=== PATIENT | male | born 1950 | race Caucasian/White ===

== ENCOUNTER → 2017-02-10 | Outpatient (CLI) | payer OTHER ==
--- NOTE | 2017-02-10 09:32 | US ---
EXAMINATION TYPE: US kidneys/renal and bladder DATE OF EXAM: 02/10/2017 COMPARISON: NONE CLINICAL HISTORY: 67-year-old male N40.1 BPH with obstruction. TECHNIQUE: Multiple sonographic images of the kidneys and bladder were obtained. FINDINGS: [employer] NOTES: Technical limitations due to large amount of overlying bowel content Right Kidney: 11.8 x 5.8 x 4.1 cm with mild pelvicaliectasis. Left Kidney: 11.7 x 5.3 x 4.5 cm with an extrarenal pelvis but no hydronephrosis. No gross abnormality of the urine distended bladder. Neither ureteral jet is seen during the course o f the exam. IMPRESSION: 1. Mild right-sided pelvicaliectasis may be transient. 2. An extrarenal pelvis incidentally noted on the left without hydronephrosis.
== END | disposition home or self-care (01) ==
LOC: RADUSWWP 08:28
PROVIDERS: ATTEND Urology
DX: N13.30 Unspecified hydronephrosis (principal); N40.1 Benign prostatic hyperplasia with lower urinary tract symptoms
CPT/HCPCS: 76770

== ENCOUNTER → 2020-10-06 | Outpatient (CLI) | payer MEDICARE ==
--- NOTE | 2020-10-06 12:59 | MR ---
EXAMINATION TYPE: MR knee RT wo con DATE OF EXAM: 10/06/2020 COMPARISON: None HISTORY: Right knee pain and swelling TECHNIQUE: Multiplanar, multisequence imaging of the right knee is performed without IV contrast. FINDINGS: MEDIAL MENISCUS: Posterior horn the medial meniscus shows abnormal linear signal extending to the und ersurface consistent with tear. There may be meniscal cyst extending from the inferior aspect of the anterior horn, abnormal signal extends into the posterior root which may be specialty sales representative degenerati ve change him a mucoid degeneration LATERAL MENISCUS: Anterior and posterior horns are intact without tear. CRUCIATE LIGAMENTS: The anterior and posterior cruciate ligaments are intact and unremarkable. COLLATERAL LIGAMENTS: The medial collateral ligament and lateral collateral ligament complex are inta ct and unremarkable. EXTENSOR MECHANISM: Visualized quadriceps and patellar tendons are intact. EFFUSION: Suprapatellar joint effusion is present. POPLITEAL CYST: No popliteal/maldonado cyst. TRICOMPARTMENT SPACES: Maintained CARTILAGE: Grade 2 to grade III chondromalacia changes suspected along the medial compartment BONE MARROW SIGNAL: There is possible reactive marrow signal change involving the proximal tibia near the insertion of the posterior cruciate ligament, there may be some local ganglion cyst formation, s agittal image 15 shows a cluster of grapes type appearance OTHER: Subcutaneous edema changes are present. There is some edema along the fascial planes posterio r to the knee IMPRESSION: Tear the posterior horn the medial meniscus. Osteoarthritis. Soft tissue edema and additional finding s above.
== END | disposition home or self-care (01) ==
LOC: RADMRIMAIN 10:28
PROVIDERS: ATTEND Orthopaedic Surgery Sports Medicine
DX: M23.321 Other meniscus derangements, posterior horn of medial meniscus, right knee (principal); M17.11 Unilateral primary osteoarthritis, right knee

== ENCOUNTER → 2021-10-12 | Outpatient (CLI) | payer MEDICARE ==
--- NOTE | 2021-10-14 14:17 | CT ---
EXAMINATION TYPE: CT abdomen pelvis w con DATE OF EXAM: 10/12/2021 COMPARISON: NONE HISTORY: 71-year-old male Left lower quadrant pain TECHNIQUE: Contiguous axial scanning of the abdomen and pelvis following administration of 100 ml Iso nancy 300 IV contrast. Delayed images through the kidneys and coronal/sagittal reconstructions perform ed. CT DLP: 1775.7 mGycm Automated exposure control for dose reduction was used. FINDINGS: Heart normal size without pericardial effusion. Lung bases clear without pleural effusion. Mild emphysematous changes noted in the visualized lower lungs. There is a small hiatal hernia. Portal venous system is patent. No biliary ductal dilatation. Gallbladder, adrenal glands, spleen are within normal limits. Bilateral parapelvic cysts measuring up to 3.3 cm on either side. Additional tiny 9 mm cortical cyst lateral right kidney. There appears to be a partially annular pancreas mildly narrowing the lumen of the second portion of the duodenum. No obstructive changes. Mild atherosclerotic calcifications infrarenal abdominal aorta and iliac arteries without aneurysm. No dilated small bowel, free fluid, or free air. No mesenteric or retroperitoneal lymphadenopathy. Normal appendix. Oral contrast progressed to the upper ascending colon. There is generalized colonic diverticulosis with mild stool burden. Mild pericolonic fat stranding along the proximal sigmoid colo n. Bladder is nondistended. Prostate gland measures 5.8 cm wide. Mildly patulous left inguinal canal. No abnormal fluid collection in the pelvis or pelvic lymphadenopathy. A few pelvic lymph nodes are note d. Bones: Moderate to advanced degenerative disc disease L3-L4 and L4-L5. Hypertrophic facet arthropathy throughout with degenerative grade 1 retrolisthesis L2-L3. IMPRESSION: 1. GENERALIZED COLONIC DIVERTICULOSIS. THERE IS MILD PERICOLONIC FAT STRANDING ALONG THE PROXIMAL SIG MOID COLON SUGGESTING CHANGES OF MILD ACUTE DIVERTICULITIS. NO ABSCESS OR FREE AIR. 2. NUMEROUS BILATERAL PARAPELVIC CYSTS MEASURING UP TO 3.3 CM. 3. THERE MAY BE A PARTIALLY ANNULAR PANCREAS INCIDENTALLY SEEN. 4. SMALL HIATAL HERNIA. BACKGROUND COPD IN THE VISUALIZED LOWER LUNGS. 5. PROSTATOMEGALY OF 5.8 CM WIDE.
== END | disposition home or self-care (01) ==
LOC: RADCTMAIN 10:30
PROVIDERS: ATTEND Family Medicine
DX: K57.30 Diverticulosis of large intestine without perforation or abscess without bleeding (principal); K44.9 Diaphragmatic hernia without obstruction or gangrene; J44.9 Chronic obstructive pulmonary disease, unspecified; N40.0 Benign prostatic hyperplasia without lower urinary tract symptoms
CPT/HCPCS: 74177; Q9967 ×2

== ENCOUNTER → 2023-08-13 | Outpatient (CLI) | payer MEDICARE ==
--- NOTE | 2023-08-15 09:45 | MR ---
EXAMINATION TYPE: MR lumbar spine wo con DATE OF EXAM: 08/13/2023 3:15 PM CLINICAL INDICATION:Male, 73 years old with history of M43.16 SPONDYLOLISTHESIS, LUMBAR REGION M41.26 Other idiopat; PHH, Low back pain that radiates down left and right leg. COMPARISON: 10/12/2021 TECHNIQUE: Multi planar, multi sequence imaging was performed utilizing: T1-weighted, T2-weighted, a nd turbo inversion recovery imaging of the lumbar spine. IV Contrast: cc . (None if empty) FINDINGS: Alignment: The lumbar vertebral bodies have preserved heights and alignment. Cord: The conus medullaris and the distal spinal cord appear unremarkable with regards to their signa l intensity and morphology. Bones/Discs: Multilevel disc degeneration changes with osteophyte formation, disc space narrowing, Sc hmorl's nodes, and facet joint arthropathy. No abnormal inversion recovery signal to suggest bony zoltan ma. Multilevel disc desiccation is present. Disc space narrowing worse at L3-L4. T12-L1: No evidence of significant spinal canal stenosis or neural foraminal stenosis. L1-L2: No evidence of significant spinal canal stenosis or neural foraminal stenosis. L2-L3: Disc bulge and facet joint arthropathy result in mild to moderate spinal canal and moderate bi lateral bilateral neural foraminal stenosis. L3-L4: Disc bulge and facet joint arthropathy result in moderate spinal canal and moderate to severe right and moderate left neural foraminal stenosis. Right extraforaminal osteophyte closely approximat e the exiting nerve series 701 image 12. L4-L5: Disc bulge and facet joint arthropathy result in mild to moderate spinal canal and moderate bi lateral neural foraminal stenosis. L5-S1: The disc is rounded posterior morphology without significant spinal canal stenosis. Facet join t arthropathy with moderate to severe bilateral neural foraminal stenosis. No significant spinal canal or neural foraminal stenosis in the remainder of the visualized levels. Other findings: Peripelvic renal cysts are seen bilaterally. IMPRESSION: 1. No definitive evidence of disc herniation or significant spinal canal stenosis. 2. Multilevel disc degeneration with associated osteoarthritic changes worse in the lower lumbar spi ne extending from L3-L4 to L5-S1. Neural foraminal stenosis worse at L3-L4 with moderate to severe ri ght and L5-S1 with moderate to severe bilateral neural foraminal stenosis. A the extraforaminal osteo phyte at L3-L4 closely approximates the exiting nerve on the right.
== END | disposition home or self-care (01) ==
LOC: RADMRIMAIN 14:15
PROVIDERS: ATTEND Physical Medicine & Rehabilitation
DX: M43.16 Spondylolisthesis, lumbar region (principal); M41.26 Other idiopathic scoliosis, lumbar region; M47.816 Spondylosis without myelopathy or radiculopathy, lumbar region; M51.37 Other intervertebral disc degeneration, lumbosacral region; M48.061 Spinal stenosis, lumbar region without neurogenic claudication; M99.73 Connective tissue and disc stenosis of intervertebral foramina of lumbar region
CPT/HCPCS: 72148